=== PATIENT | female | born 1930 | race Caucasian/White ===

== ENCOUNTER 2020-08-27 13:31 | Outpatient (CLI) | payer MEDICARE, BC ==
--- NOTE | 2020-08-27 13:50 | RAD ---
RIGHT ANKLE 3 VIEWS: HISTORY: Edema, right ankle pain FINDINGS: Soft tissue swelling is present. The ankle mortise is maintained. No dislocation is identified. There is a healing fracture of the distal fibula and probably medial malleolus.
== END 2020-08-27 13:32 | disposition home or self-care (01) ==
LOC: SCSRAD 13:31
PROVIDERS: ATTEND Student in an Organized Health Care Education/Training Program
DX: M25.571 Pain in right ankle and joints of right foot (principal); R60.0 Localized edema